=== PATIENT | male | born 2005 | race Two or more races ===

== ENCOUNTER 2025-02-06 01:10 | Emergency (ER) | payer SELFPAY ==
[2025-02-06 01:23] VITALS: BP 125/77; PULSE 120; RESP 18; TEMP 37.3; O2SAT 95
[2025-02-06 01:24] VITALS: BMI 25.8
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
--- NOTE | 2025-02-06 02:22 | PRELIM_ITS ---
CT scan of the head without intravenous contrast (axial sections with sagittal and coronal reformats). February 06, 2025 0159 hours Clinical History: Trauma Comparison: None Findings: There is no intracranial hemorrhage, extra-axial collection, mass, mass-effect or midline shift. There is good carvajal-white differentiation. There is no CT evidence of acute large vascular territorial infarct. Ventricles are not enlarged or effaced. Visualized paranasal sinuses and tympanomastoid cavities are clear except for small mucous retention cyst in the posterior right ethmoid region. The bony calvarium is intact. Impression: No intracranial hemorrhage, mass-effect or midline shift. No CT evidence of acute large vascular territorial infarct. Report Electronically Signed By: Tristan Antunez 02/06/2025 2:21:52 AM [EST]
[2025-02-06 05:48] VITALS: BP 100/89; PULSE 111; RESP 19; TEMP 36.7
== END 2025-02-06 05:49 ==
LOC: SERX 05:52
PROVIDERS: Emergency Provider Emergency Medicine
DX: Z02.89 Encounter for other administrative examinations (principal); S06.0X0A Concussion without loss of consciousness, initial encounter; S13.4XXA Sprain of ligaments of cervical spine, initial encounter; S43.401A Unspecified sprain of right shoulder joint, initial encounter; S40.011A Contusion of right shoulder, initial encounter; Y35.893A Legal intervention involving other specified means, suspect injured, initial encounter
CPT/HCPCS: 70450; 72040; 73030; 99282